=== PATIENT | male | born 1955 | race Caucasian/White ===

== ENCOUNTER → 2017-06-25 | Day surgery (SDC) | payer OTHER ==
[~2017-06-25] VITALS: Ht 182.9 cm; Wt 100.9 kg
[~2017-06-25] MED LIST: *RESP: ALBUTEROL 2.5 MG/3 ML NEB (PRN) PERIprocedural Use ONLY NEB ONE; *morphine SULFATE 8 MG/ML PERIprocedure ONLY ONE; ACETAMINOPHEN 1000 MG/100 ML 100 ML IV SCH; ALEV220T14 PO; AMLO2.5T PO; BACITRACIN TOP OINT 15 GM TUBE ONE; BUPIVACAINE/EPINEPHRINE 0.5% PF 30 ML VIAL ONE; CHLORHEXIDINE GLUCONATE 2 % 1 PACK (2 CLOTHS) TOPICAL PRN; DEXAMETHASONE SOD PHOS 4 MG/ML VIAL IV ONE; DO NOT ADM ANY ANTICOAGULANT DRUGS PRN; FEXO1TAB97 PO; FLUT50SP EACH NARE; FORM1POW2 INH; GLYCOPYRROLATE 1 MG/5 ML SYRINGE IV PUSH ONE; INSULIN HUMAN REGULAR 1,000 UNITS/10 ML VIAL SQ PRN; KETOROLAC TROMETHAMINE 30 MG/ML (IVP) VIAL IV PUSH ONE; LACTATED RINGER'S 1000 ML INJ 1,000 ML IV ONE; LACTATED RINGER'S 1000 ML IV PRN; LIDOCAINE HCL 1% PF 5 ML SYRINGE OTHER ONE; LOSA50TA PO; MELO7.5T27 PO; METOPROLOL TARTRATE 25 MG TAB PO PRN; MIDAZOLAM HCL 2 MG/2 ML VIAL IV ONE; MORPHINE SULFATE 2 MG/ML INJ ONE; MORPHINE SULFATE 4 MG/ML INJ IV ONE; MORPHINE SULFATE 4 MG/ML INJ IV PUSH PRN; NEOSTIGMINE 5 MG/5 ML SYRINGE IV PUSH ONE; OMEP20TA93 PO; ONDANSETRON HCL 4 MG/2 ML VIAL IV ONE; ONDANSETRON HCL 4 MG/2 ML VIAL IV PUSH PRN; PHENYLEPH/NS 1000 MCG/10 ML SYR IV ONE; POVIDONE IODINE 5% (ANTISEPSIS KIT) 4 APPLICATIONS EACH NARE PRN; PROPOFOL 200 MG/20 ML AMP IV ONE; ROCURONIUM INJ 50 MG/5 ML SYRINGE IV PUSH ONE; SIMV40TA PO; SODIUM CHLORID 0.9% 500 ML IV PRN; TRAM50TA PO; VENTAER INH; ceFAZolin 2 GM PREMIX 50 ML IV SCH; ceFAZolin INJ 1,000 MG VIAL ONE; ePHEDrine/NS 25 MG/5 ML SYRINGE IV ONE; oxyCODONE/ACETAMINOPHEN 5 MG/325 MG TAB PO PRN
--- NOTE | 2017-06-25 10:08 | PD.OP ---
cc: Mohit Salcedo MD Operative Report Date of Surgery: Jun 25, 2017 Preoperative Diagnosis: (1) Left inguinal hernia Postoperative Diagnosis: (1) Left inguinal hernia Procedure: Laparoscopic left inguinal hernia repair with mesh Anesthesia: JORGE L Surgeon: Mohit Salcedo Chief Lock Tender Operator(s): Denise Operation and Findings: EBL: 10cc Operative findings: Large direct and moderate sized indirect inguinal hernias with chronic inflammation. Procedure in detail: The patient was taken to the operating room and placed in the supine position. General endotracheal anesthesia was induced. The abdomen was prepped and draped in usual sterile fashion and a surgical timeout performed to verify correct patient procedure and site. A 1 cm incision was made inferior to the umbilicus after infiltration of local anesthetic. Dissection carried down to the underlying fascia and the anterior fascia to the left of midline was incised vertically. The extraperitoneal space was developed by insufflating the balloon. This trocar was then removed and the structural balloon was placed. The extraperitoneal space was insufflated to 11 mmHg with CO2 gas which the patient tolerated well. Next two 5 mm ports were placed in the lower midline. Attention was turned to the left inguinal area. The lateral space was developed. Medially Rustam's ligament was identified. A large direct hernia was identified and reduced. Attention was turned to the spermatic cord. The spermatic cord structures were identified. A large indirect inguinal hernia with chronic inflammation was present and reduced carefully. 2 small defects in the peritoneum were made and each was closed separately with a looped PDS. At this point, a 15 x 15 cm piece of ultra Pro advanced lightweight polypropylene mesh was cut to approximately 12 x 15 cm. It was secured with the Secure strap tacker superior laterally, superior and lateral to the epigastric vessels, medially at Rustam's ligament, and medial and superior in the rectus musculature. There was complete coverage of the entire inguinal floor including the indirect and direct spaces with care taken to secure well medially due to the large direct defect. The extraperitoneal spaces and allowed to desufflate and trochars were removed. The posterior rectus fascia was opened to desufflate the intraperitoneal cavity. This defect was closed with 2-0 Vicryl suture. The anterior fascia was closed with running 2-0 Vicryl suture and skin with 4-0 Monocryl subcuticular as well as Dermabond. The patient tolerated the procedure well and was extubated and taken to PACU in stable condition. Mohit Salcedo MD Jun 25, 2017 10:08
[2017-06-25 12:50] VITALS: BP 113/72; PULSE 72; RESP 18; TEMP 98.2; O2SAT 94
== END | disposition home or self-care (01) ==
LOC: HSDC 06:01
PROVIDERS: ATTEND Surgery
DX: K40.90 Unilateral inguinal hernia, without obstruction or gangrene, not specified as recurrent (principal); I10 Essential (primary) hypertension; J45.909 Unspecified asthma, uncomplicated
CPT/HCPCS: 00840; 49650; 94664; C1727; C1781; J0131; J0690; J1100; J1885; J2250; J2270; J2370; J2405; J2710; J3010; J7120; J7613